=== PATIENT | male | born 1985 | race Caucasian/White ===

== ENCOUNTER 2017-04-14 12:15 | Day surgery (SDC) | payer OTHER ==
[~2017-04-14 12:15] MED LIST: Lactated Ringers 1,000 ML IV SCH; Lidocaine 1%/Sod Bicarbonate in NS 8.4% 1 ML Syringe PRN; Sodium Chloride 0.9% 10 ML Syringe FLUSH PRN
--- NOTE | 2017-04-14 12:51 | PCM.PREANE ---
Preanesthetic Assessment - Anesthesia/Transfusion/Family Hx Anesthesia History: Prior Anesthesia Without Reaction Family History of Anesthesia Reaction: No Transfusion History: No Prior Transfusion(s) - Review of Systems General: No Symptoms Pulmonary: No Symptoms Cardiovascular: No Symptoms Gastrointestinal: No Symptoms Neurological: No Symptoms - Physical Assessment NPO Status Date: 04/13/17 NPO Status Time: 00:00 Pulse: 73 O2 Sat by Pulse Oximetry: 98 Respiratory Rate: 16 Blood Pressure: 151/88 Temperature: 36.9 C Height: 1.73 m Weight: 122.47 kg ASA Class: 2 Mental Status: Alert & Oriented x3 Airway Class: Mallampati = 2 Dentition: Reports: Normal Dentition Thyro-Mental Finger Breadths: 2 Mouth Opening Finger Breadths: 3 ROM/Head Extension: Full Lungs: Clear to Auscultation, Normal Respiratory Effort Cardiovascular: Regular Rate, Regular Rhythm, No Murmurs - Allergies Allergies/Adverse Reactions: Allergies Allergy/AdvReac Type Severity Reaction Status Date / Time Sulfa (Sulfonamide Allergy Cannot Verified 05/05/16 08:26 Antibiotics) Remember Iodinated Contrast- Oral and AdvReac Vomiting Verified 04/14/17 11:00 IV Dye - Blood Blood Available: No Product(s) Available: None - Anesthesia Plan Pre-Op Medication Ordered: None - Acknowledgements Anesthesia Type Planned: MAC Pt an Appropriate Candidate for the Planned Anesthesia: Yes Alternatives and Risks of Anesthesia Discussed w Pt/Guardian: Yes Pt/Guardian Understands and Agrees with Anesthesia Plan: Yes PreAnesthesia Questionnaire Other HEENT History: wears eyeglasses Cardiovascular History: Reports: Hypertension Musculoskeletal History: Reports: Fracture Oncologic (Cancer) History: Reports: Other (See Below) Other Oncologic History: testicular CA 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 - Past Surgical History Male Surgical History: Reports: Lithotripsy (ESWL), Ureteral Stent, Other ( See Below) - SUBSTANCE USE Smoking Status *Q: Never Smoker Tobacco Use Within Last Twelve Months: Smokeless Tobacco Second Hand Smoke Exposure: No Days Per Week of Alcohol Use: 0 Number of Drinks Per Day: 1 Total Drinks Per Week: 0 Recreational Drug Use History: No - HOME MEDS Home Medications: Home Meds Hydrochlorothiazide 12.5 mg PO DAILY 10/29/15 [History] Naproxen [Naprosyn] 500 mg PO Q12HR #14 tablet 05/05/16 [Rx] amLODIPine [Norvasc] 2.5 mg PO DAILY 05/05/16 [History] - CURRENT (IN HOUSE) MEDS Current Meds: Current Medications Lactated Ringer's (Ringers, Lactated) 1,000 mls @ 125 mls/hr IV ASDIRECTED LISETH Stop: 04/14/17 23:00 Lidocaine/Sodium Bicarbonate (Buffered Lidocaine 1% In Ns 8.4%) 0.25 ml .XX ONETIME PRN PRN Reason: Prior to IV Start Stop: 04/14/17 18:00 Sodium Chloride (Saline Flush) 10 ml FLUSH ASDIRECTED PRN PRN Reason: Keep Vein Open Stop: 04/14/17 18:00
[2017-04-14] MEDS ORDERED: Bupivacaine 0.5%/EPINEPHrine 1:200,000 50 ML MDV ONE (12:58)
[2017-04-14] MEDS ORDERED: fentaNYL 250 MCG/5 ML SDV ONE (13:14)
[2017-04-14] MEDS ORDERED: Propofol 200 MG/20 ML SDV ONE (13:14)
[2017-04-14] MEDS ORDERED: Midazolam 1 MG/ML 2 ML SDV ONE (13:14)
[2017-04-14] MEDS ORDERED: Lidocaine 1% 4 ML ONE (13:17)
--- NOTE | 2017-04-14 13:40 | PCM.OPNOTE ---
- General Post-Op/Procedure Note Date of Surgery/Procedure: 04/14/17 Operative Procedure(s): I&D matthew rectal abscess Pre Op Diagnosis: per rectal abscess Post-Op Diagnosis: Same Anesthesia Technique: MAC Primary Surgeon: Erick Bowman EBL in mLs: 0 Complications: None Condition: Good
[2017-04-14 14:33] VITALS: BP 120/63
--- NOTE | 2017-04-15 07:26 | OR ---
DATE OF OPERATION: 04/14/2017 SURGEON: Erick Bowman MD PREOPERATIVE DIAGNOSIS: Perirectal abscess. POSTOPERATIVE DIAGNOSIS: Perirectal abscess. FINDINGS: An abscess in the perirectal area, confined to the of subcutaneous area, not involving any muscles on the right anterior area quadrant of the perianal area. There was no connection to the anal canal. OPERATION PERFORMED: Incision and drainage of perirectal abscess. ANESTHESIA: IV sedation. DESCRIPTION OF PROCEDURE: The patient was taken to the operating room, placed in the supine position, connected to monitoring equipment, given IV sedation, placed in lithotomy position. The perianal area were inspected. Rectal exam showed normal anal canal. A speculum was inserted, did not show any connection of the abscess with the anal canal. The abscess was opened and drained and the base of the abscess explored, and no fistulous tract identified. Gauze dressing was then placed with dibucaine ointment. This completed the operative procedure. The patient tolerated the procedure and was sent to recovery room in stable condition with instructions for sitz baths and use dibucaine ointment. Follow up as needed in the clinic. ESTIMATED BLOOD LOSS: 0 mL MMODAL /[id number]
== END 2017-04-14 14:25 | disposition home or self-care (01) ==
LOC: JD.SDS 12:15
PROVIDERS: ATTEND Surgery
DX: K61.1 Rectal abscess (principal); I10 Essential (primary) hypertension; G47.30 Sleep apnea, unspecified; Z87.442 Personal history of urinary calculi; Z85.47 Personal history of malignant neoplasm of testis; Z87.891 Personal history of nicotine dependence; Z90.89 Acquired absence of other organs; Z98.890 Other specified postprocedural states; Z88.2 Allergy status to sulfonamides; Z91.041 Radiographic dye allergy status; Z79.51 Long term (current) use of inhaled steroids; Z79.899 Other long term (current) drug therapy
CPT/HCPCS: 46040; A9270; J2250; J3010; J7120; 00902; J2704

== ENCOUNTER 2022-05-06 06:58 | Day surgery (SDC) | payer OTHER ==
[~2022-05-06 06:58] MED LIST changes: +Lidocaine 1%/Sod Bicarbonate in NS 8.4% 1 ML Syringe IDERM PRN; -Lidocaine 1%/Sod Bicarbonate in NS 8.4% 1 ML Syringe PRN; +Sodium Chloride 0.9% 10 ML Syringe FLUSH SCH
[2022-05-06] MEDS ORDERED: Propofol 200 MG/20 ML SDV ONE (07:09)
[2022-05-06] MEDS ORDERED: Midazolam 1 MG/ML 2 ML SDV ONE (07:10)
[2022-05-06] MEDS ORDERED: fentaNYL 100 MCG/2 ML SDV ONE ×2 (07:10→08:14)
[2022-05-06] MEDS ORDERED: Bupivacaine 0.5% 30 ML SDV ONE (07:58)
[2022-05-06] MEDS ORDERED: Ketorolac 15 MG/ML SDV ONE (08:42)
[2022-05-06 09:21] VITALS: BP 119/83; PULSE 62
== END 2022-05-06 09:40 | disposition home or self-care (01) ==
LOC: JD.SDS 06:58
PROVIDERS: ATTEND Surgery
DX: D12.8 Benign neoplasm of rectum (principal); K64.8 Other hemorrhoids; I10 Essential (primary) hypertension; E66.01 Morbid (severe) obesity due to excess calories; G47.33 Obstructive sleep apnea (adult) (pediatric); E11.9 Type 2 diabetes mellitus without complications; Z90.49 Acquired absence of other specified parts of digestive tract; Z98.890 Other specified postprocedural states; Z88.2 Allergy status to sulfonamides; Z88.8 Allergy status to other drugs, medicaments and biological substances; Z87.891 Personal history of nicotine dependence; Z68.41 Body mass index [BMI] 40.0-44.9, adult; Z91.041 Radiographic dye allergy status; Z79.899 Other long term (current) drug therapy
CPT/HCPCS: 45380; J1885; J2250; J2704; J3010; J3490; J7120; 00811

== ENCOUNTER 2022-12-09 00:44 | Emergency (ER) | payer OTHER ==
[2022-12-09] MEDS ORDERED: Ondansetron 4 MG/2 ML SDV IVPUSH ONE (01:11)
[2022-12-09] MEDS ORDERED: HYDROmorphone 1 MG/ML Syringe IVPUSH ONE (01:11)
[2022-12-09] MEDS ORDERED: Ondansetron 4 MG Tab.DIS PO ONE (01:19)
[2022-12-09] MEDS ORDERED: HYDROmorphone 1 MG/ML Syringe IM ONE (01:19)
[2022-12-09] MEDS ORDERED: Orphenadrine 100 MG Tab.ER PO STA (01:19)
[2022-12-09] MEDS ORDERED: LORazepam 2 MG/ML SDV IM STA (01:27)
[2022-12-09 02:36] VITALS: BP 148/76; PULSE 89
== END 2022-12-09 02:34 | disposition home or self-care (01) ==
LOC: JD.ED 00:44
DX: M54.16 Radiculopathy, lumbar region (principal); I10 Essential (primary) hypertension; E11.9 Type 2 diabetes mellitus without complications; E66.9 Obesity, unspecified; F17.220 Nicotine dependence, chewing tobacco, uncomplicated; Z68.41 Body mass index [BMI] 40.0-44.9, adult; Z88.8 Allergy status to other drugs, medicaments and biological substances; Z88.2 Allergy status to sulfonamides; Z91.041 Radiographic dye allergy status; Z79.899 Other long term (current) drug therapy
CPT/HCPCS: 96372; 99284; A9270; J1170; J2060

== ENCOUNTER 2023-01-22 20:56 | Emergency (ER) | payer OTHER ==
[2023-01-22 21:14] VITALS: BP 151/85; PULSE 84
== END 2023-01-22 21:31 | disposition home or self-care (01) ==
LOC: JD.ED 20:56
DX: K61.1 Rectal abscess (principal); I10 Essential (primary) hypertension; E11.9 Type 2 diabetes mellitus without complications; E66.9 Obesity, unspecified; Z68.41 Body mass index [BMI] 40.0-44.9, adult; Z88.8 Allergy status to other drugs, medicaments and biological substances; Z88.2 Allergy status to sulfonamides; Z91.041 Radiographic dye allergy status; Z79.899 Other long term (current) drug therapy
CPT/HCPCS: 99282; 99283